=== PATIENT | female | born 2005 ===

== ENCOUNTER 2024-08-03 10:55 | Emergency (ER) ==
[~2024-08-03] VITALS: Ht 177.8 cm; Wt 77.1 kg
[2024-08-03 11:51] VITALS: BP 121/90
[2024-08-03 12:00] VITALS: BP 112/79
[2024-08-03 12:15] VITALS: BP 108/77
== END 2024-08-03 12:30 | disposition left against medical advice (07) | DRG 951 ==
LOC: ED 10:55
DX: Z53.21 Procedure and treatment not carried out due to patient leaving prior to being seen by health care provider (principal)